=== PATIENT | female | born 2000 | race Caucasian/White ===

== ENCOUNTER 2023-08-31 16:45 | Outpatient (RCR) | payer BC, SELFPAY | END 2023-12-29 23:59 | disposition home or self-care (01) | PROVIDERS: PCP Family Medicine; Visit Provider Family Medicine | DX: M25.552 Pain in left hip (principal); S76.012A Strain of muscle, fascia and tendon of left hip, initial encounter; Z51.89 Encounter for other specified aftercare | CPT/HCPCS: 97110; 97140; 97161 ==